=== PATIENT | female | born 1985 ===

== ENCOUNTER 2018-07-01 15:45 | Emergency (ER) | payer BC, MEDICAID ==
--- NOTE | 2018-07-01 16:39 | C.PDOC ---
History Of Present Illness 33 year old female presents to the ED for evaluation of laceration to the right thumb onset prior to arrival. Patient reports he accidentally sliced his thumb while using a kitchen mandolin. Denies other injuries and any other associated symptoms. 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 PS ACCID SLICED WHILE USING KITCHEN MANDOLIN. NO OTHER ASSOC SX, INJURIES EXAM NAD SKIN R THUMB +SUPERFICIAL FLAP LAC TIP OF THUMB MIN ACTIVE BLEEDING. NAIL INTACT. EXT AROM R THUMB WO DIFF NEURO INTACT MDM PT ADVISED RISKS/BENEFITS OF FLAP LAC REPAIR. PS DOES NOT WISH SUTURES. STERISTRIPS APPLIED, THUMB SPLINT. PT AGREES W DC PLAN Time Seen by Provider: 07/01/18 16:21 Chief Complaint (Nursing): Abnormal Skin Integrity History Per: Patient History/Exam Limitations: no limitations Onset/Duration Of Symptoms: Other (prior to arrival.) Current Symptoms Are (Timing): Still Present Past Medical History Reviewed: Historical Data, Nursing Documentation, Vital Signs Vital Signs: Last Vital Signs Temp 98.3 F 07/01/18 15:55 Pulse 90 07/01/18 15:55 Resp 20 07/01/18 15:55 BP 148/105 H 07/01/18 15:55 Pulse Ox 100 07/01/18 15:55 Family History: States: Unknown Family Hx - Social History Hx Alcohol Use: No Hx Substance Use: No - Immunization History Hx Tetanus Toxoid Vaccination: No Hx Influenza Vaccination: No Review Of Systems Except As Marked, All Systems Reviewed And Found Negative. Constitutional: Negative for: Other (other injuries. ) Skin: Positive for: Other (right thumb laceration.) Physical Exam - Physical Exam Appears: Well, Non-toxic Skin: Normal Color, Warm, Dry, Other ((+) superficial flap laceration to the tip of the right thumb. minimal active bleeding. nail intact.) Head: Atraumatic, Normacephalic Eye(s): bilateral: Normal Inspection Oral Mucosa: Moist Neck: Normal ROM, Supple Respiratory: Other (NARD) Extremity: Normal ROM (of the right thumb with no difficulty.), Capillary Refill (less than 2 seconds. ), No Deformity Neurological/Psych: Oriented x3, Normal Speech ED Course And Treatment O2 Sat by Pulse Oximetry: 100 (RA) Pulse Ox Interpretation: Normal Laceration - Laceration Repair No standard instances Wound Length (In cm): 1.5 Description Of Wound: Irregular Wound Cleansed With: Betadine, Sterile Saline Wound Examination: Irrigated With Saline Wound Closure: Steri Strips Medical Decision Making Medical Decision Making: Progress/Update: Patient advised of the risks and benefits of a flap laceration repair. Patient does not wish to have sutures applied. Steri-strips applied and thumb was splinted. Patient agrees with discharge plan, stable for discharge home. Prescribed Synthroid and Glucophage. Disposition Counseled Patient/Family Regarding: Diagnosis, Need For Followup - Disposition Referrals: YOUR,PMD [Other] Disposition: HOME/ ROUTINE Disposition Time: 16:39 Condition: IMPROVED Additional Instructions: STERI-STRIPS Steri-strips are pieces of adhesive material that can be used in some surgical procedures to help the edges of an incision grow together. They have several advantages, including low rates of infection, speed of application, no need for local anesthesia, and no need for special removal. Steri-strips begin to curl and peel away from the body, usually within five to seven days after application. They should be pulled off after two weeks if they have not already fallen off. Steri-strips, however, have two disadvantages: they are not as precise as sutures in bringing the edges of an incision into alignment; and they cannot be used on areas of the body that are hairy or that secrete moisture, such as the palms of the hands or the armpits. Incisions closed with Steri-strips should be kept dry for about four to five days. If the incision gets wet accidentally, it must be dried at once. Patients with incisions on the face, hands, or arms may be able to take showers or tub baths as long as they are able to hold the affected area outside the water. Patients with incisions in other parts of the body can usually take sponge bath Instructions: Wound Care (DC) Forms: [facility] (Irish) - Clinical Impression Clinical Impression: Thumb laceration - Scribe Statement The provider has reviewed the documentation as recorded by the Scribe (Mariangel Olmos) Provider Attestation: All medical record entries made by the Scribe were at my direction and personally dictated by me. I have reviewed the chart and agree that the record accurately reflects my personal performance of the history, physical exam, medical decision making, and the department course for this patient. I have also personally directed, reviewed, and agree with the discharge instructions and disposition. Orthopedic Care Application Of:: Finger Splint
[2018-07-01 16:49] VITALS: BP 124/80; PULSE 76; RESP 18; TEMP 98.2
[2018-07-01 20:46] VITALS: O2SAT 100
== END 2018-07-01 16:57 | disposition home or self-care (01) ==
LOC: C.ER 15:45
DX: S61.011A Laceration without foreign body of right thumb without damage to nail, initial encounter (principal); W27.8XXA Contact with other nonpowered hand tool, initial encounter; Y93.G1 Activity, food preparation and clean up